=== PATIENT | female | born 1970 | race Caucasian/White ===

== ENCOUNTER 2022-09-09 18:19 | Emergency (ER) | payer OTHER ==
[~2022-09-09] VITALS: Ht 162.6 cm; Wt 68.0 kg
[2022-09-09 18:33] VITALS: BP 175/96
[2022-09-09] MEDS ORDERED: KETOROLAC 30 MG/ML VIAL IM ONE (19:15)
--- NOTE | 2022-09-09 19:21 | NUR ---
VELCRO SPLINT APPLIED TO R WRIST. + CMS
[2022-09-09] MEDS ORDERED: ACET-10509 PO (19:55)
[2022-09-09] MEDS ORDERED: TRAM-748 PO ×2 (19:55→19:57)
--- NOTE | 2022-09-09 20:12 | NUR ---
Patient discharged with v/s stable. Written and verbal after care instructions given and explained. Patient alert, oriented and verbalized understanding of instructions. Ambulatory with steady gait. All questions addressed prior to discharge. ID band removed. Patient advised to follow up with PMD. Rx of ULTRAM TYLENOL EXTRA STRENGTH given.
== END 2022-09-09 20:12 | disposition home or self-care (01) ==
LOC: MED 18:19
DX: M79.601 Pain in right arm (principal); Z86.73 Personal history of transient ischemic attack (TIA), and cerebral infarction without residual deficits; Z98.84 Bariatric surgery status
CPT/HCPCS: 29125; 96372; 99283; J1885

== ENCOUNTER → 2022-09-17 | Emergency (ER) | payer OTHER ==
[~2022-09-17] VITALS: Ht 157.5 cm; Wt 83.9 kg
[~2022-09-17] MED LIST: ACET-10509 PO; KETOROLAC 30 MG/ML VIAL IM ONE; TRAM-748 PO
[2022-09-17 18:57] VITALS: BP 171/82
--- NOTE | 2022-09-17 19:00 | NUR ---
PATIENT PRESENTS TO ED WITH REQUEST FOR PAIN MANAGEMENT FOR HER RIGHT SHOULDER. PATIENT STATED SHE USUALLY COMES HERE FOR HER PAIN CONTROL.
--- NOTE | 2022-09-17 19:36 | NUR ---
Patient discharged with v/s stable. Written and verbal after care instructions given and explained. Patient verbalized understanding. Ambulatory with steady gait. All questions addressed prior to discharge. Advised to follow up with PMD.
== END | disposition home or self-care (01) ==
LOC: MED 18:02
DX: G89.29 Other chronic pain (principal); M25.511 Pain in right shoulder; R03.0 Elevated blood-pressure reading, without diagnosis of hypertension; I25.2 Old myocardial infarction; Z86.73 Personal history of transient ischemic attack (TIA), and cerebral infarction without residual deficits; Z79.899 Other long term (current) drug therapy; Z98.84 Bariatric surgery status
CPT/HCPCS: 96372; 99283; J1885

== ENCOUNTER 2022-11-04 17:26 | Emergency (ER) | payer OTHER ==
[~2022-11-04] VITALS: Ht 162.6 cm; Wt 81.6 kg
[~2022-11-04 17:26] MED LIST changes: -KETOROLAC 30 MG/ML VIAL IM ONE
[2022-11-04 17:51] VITALS: BP 185/94
--- NOTE | 2022-11-04 17:55 | NUR ---
PT AMB TO BED 4.
--- NOTE | 2022-11-04 18:25 | NUR ---
SLING APPLIED TO L ARM. + CMS
--- NOTE | 2022-11-04 19:01 | NUR ---
Dr Gutiérrez made aware of pt B/P 184/90
[2022-11-04] MEDS ORDERED: TRAM50TA3 PO (19:03)
[2022-11-04] MEDS ORDERED: traMADol 50 MG TAB PO ONE (19:05)
--- NOTE | 2022-11-04 19:14 | NUR ---
Pt report given to GERBER Valderrama. Transfer of care at this time.
[2022-11-04 19:25] VITALS: BP 150/86
== END 2022-11-04 19:25 | disposition home or self-care (01) ==
LOC: MED 17:26
DX: M25.511 Pain in right shoulder (principal); I10 Essential (primary) hypertension; I25.10 Atherosclerotic heart disease of native coronary artery without angina pectoris; F17.210 Nicotine dependence, cigarettes, uncomplicated; Z86.73 Personal history of transient ischemic attack (TIA), and cerebral infarction without residual deficits; Z79.899 Other long term (current) drug therapy
CPT/HCPCS: 99283

== ENCOUNTER 2022-11-13 16:39 | Emergency (ER) | payer SELFPAY ==
[~2022-11-13] VITALS: Ht 162.6 cm; Wt 81.6 kg
[~2022-11-13 16:39] MED LIST changes: +TRAM50TA3 PO
[2022-11-13 17:10] VITALS: BP 180/89
--- NOTE | 2022-11-13 17:45 | NUR ---
BIB SELF C/O RIGHT SHOULDER PAIN. SEEN HERE 9 DAYS AGO SAME S/S. PMH: KS, STROKE, GASTRIC BY PASS
[2022-11-13] MEDS ORDERED: CAPS1ADH5 TP (18:58)
[2022-11-13] MEDS ORDERED: TRAM-748 PO (18:58)
[2022-11-13] MEDS ORDERED: DICL20GE TP (18:58)
[2022-11-13 19:04] VITALS: BP 143/76
--- NOTE | 2022-11-13 19:04 | NUR ---
Patient discharged with v/s stable. Written and verbal after care instructions given and explained. Patient alert, oriented and verbalized understanding of instructions. Ambulatory with steady gait. All questions addressed prior to discharge. ID band removed. Patient advised to follow up with PMD. Rx of SALONPAS GEL PATCH HOT, VOLTAREN ARTHRITIS PAIN, ULTRAM given. Patient educated on indication of medication including possible reaction and side effects. Opportunity to ask questions provided and answered.
== END 2022-11-13 19:04 | disposition home or self-care (01) ==
LOC: MED 16:39
DX: M19.011 Primary osteoarthritis, right shoulder (principal); M25.511 Pain in right shoulder
CPT/HCPCS: 73030; 99283; Q0092

== ENCOUNTER 2024-05-27 09:23 | Emergency (ER) | payer SELFPAY ==
[~2024-05-27] VITALS: Ht 162.6 cm; Wt 89.8 kg
[~2024-05-27 09:23] MED LIST changes: -ACET-10509 PO; +ACET500T99 PO; +CAPS1ADH5 TP; +DICL20GE TP
--- NOTE | 2024-05-27 09:30 | NUR ---
PATIENT PRESENTS TO ED WITH FACIAL PAIN. PT STATES THAT THEY HAVE BEEN DRINKING AND IN CHORNIC PAIN. DENIES N/V/D; SKIN IS PINK/WARM/DRY; AAOX4 WITH EVEN AND STEADY GAIT; LUNGS CLEAR BL; HR EVEN AND REGULAR; PT DENIES ANY FEVER, CP, SOB, OR COUGH AT THIS TIME; PATIENT STATES PAIN OF 10/10 AT THIS TIME; BLOOD PRESSURE 220/89; PATIENT POSITIONED FOR COMFORT; HOB ELEVATED; BEDRAILS UP X2; BED DOWN. ER MD MADE AWARE OF PT STATUS. CALL LIGHT WITHIN REACH NKA
[2024-05-27 09:31] VITALS: BP 220/101; PULSE 83; RESP 18; TEMP 98.6; O2SAT 98
--- NOTE | 2024-05-27 09:38 | NUR ---
Eric spaulding in [facility] - 05/27/24 at 1442 by [facility] TO ER BED 12
[2024-05-27] MEDS ORDERED: LORazepam 2 MG/ML VIAL IVP ONE (10:00)
--- NOTE | 2024-05-27 10:25 | NUR ---
REHABILITATION COORDINATOR MELLY AT BEDSIDE EKG.
[2024-05-27 10:40] LABS: BASOPHILS % (AUTO) 1.1 % (0.0-2.0); EOSINOPHILS # (AUTO) 0.2 K/uL (0-0.4); EOSINOPHILS % (AUTO) 5.9 % (0.0-4.0); HEMATOCRIT 42.2 % (36-48); HEMOGLOBIN 14.1 g/dL (12.0-16.0); LYMPHOCYTES # (AUTO) 0.9 K/uL (2.5-16.5); MEAN CORPUSCULAR HEMOGLOBIN 33 pg (27-31); MEAN CORPUSCULAR HGB CONC 33 g/dL (33-37); MEAN CORPUSCULAR VOLUME 99.6 fL (80-94); MONOCYTES # (AUTO) 0.6 K/uL (0.8-1.0); MONOCYTES % (AUTO) 14.5 % (1.7-9.3); NEUTROPHILS # (AUTO) 2.2 K/uL (1.8-7.7); NEUTROPHILS % (AUTO) 56.5 % (42.2-75.2); PLATELET COUNT (AUTO) 210 K/uL (140-450); RED BLOOD CELL COUNT(AUTO) 4.23 MIL/uL (4.20-5.40); RED CELL DISTRIBUTION WIDTH 14.5 % (11.6-13.7); WHITE BLOOD COUNT (AUTO) 3.9 K/uL (4.8-10.8)
[2024-05-27] MEDS: KETOROLAC 30 MG/ML VIAL IVP ONE (10:42)
[2024-05-27] MEDS: NACL 0.9% 1,000 ML IV ONE (10:43)
[2024-05-27 10:45] LABS: APPEARANCE,URINE CLEAR (CLEAR); BILIRUBIN,URINE NEGATIVE (NEGATIVE); BLOOD, URINE NEGATIVE (NEGATIVE); COLOR,URINE YELLOW (YELLOW); LEUKOCYTE ESTERASE ,URINE 1+ (NEGATIVE); NITRITE, URINE NEGATIVE (NEGATIVE); PROTEIN,URINE NEGATIVE (NEGATIVE); UGLUCOSE NEGATIVE (NEGATIVE); UROBILINOGEN,URINE 0.2 EU/dL (0.2 - 1)
[2024-05-27] MEDS: hydrALAZINE 20 MG/ML VIAL IVP ONE (10:49)
[2024-05-27 10:52] LABS: INR 1.04 (0.8-1.2); PROTHROMBIN TIME 10.9 secs (10.8-13.4)
[2024-05-27 10:56] LABS: CALCIUM 9.6 mg/dL (8.5-10.1); CARBON DIOXIDE 25.7 mmol/L (21-32); CREATININE 0.9 mg/dL (0.6-1.3); POTASSIUM 3.7 mmol/L (3.5-5.1)
[2024-05-27 10:58] LABS: ALANINE AMINOTRANSFERASE 273 U/L (12-78); ALBUMIN 3.6 g/dL (3.4-5.0); ALCOHOL, BLOOD < 3 mg/dL (<10); ALKALINE PHOSPHATASE 129 U/L (50-136); ASPARTATE AMINOTRANSFERASE 223 U/L (15-37); BACTERIA,URINE FEW /HPF (None Seen); BILIRUBIN,DIRECT 0.8 mg/dL (0.0-0.3); LIPASE 41 U/L (16-77); RBC,URINE 0-5 /HPF (0-5); SQUAMOUS EPITHELIAL CELL,UR 4-10 (MOD) /LPF (0-3 (FEW)); TOTAL BILIRUBIN 1.3 mg/dL (0.0-1.0); TOTAL PROTEIN, SERUM 7.1 g/dL (6.4-8.2)
[2024-05-27 10:59] LABS: AMPHETAMINE, URINE NEGATIVE ng/ml (NEG <=1000); BARBITURATE, URINE NEGATIVE ng/ml (NEG <=200); BENZODIAZEPINE, URINE NEGATIVE ng/mL (NEG <=200); CANNABINOID, URINE NEGATIVE ng/mL (NEG <=50); COCAINE, URINE NEGATIVE ng/mL (NEG <=300); OPIATE, URINE NEGATIVE ng/mL (NEG <=2000); PHENCYCLIDINE SCREEN,URINE NEGATIVE ng/mL (NEG <=25)
--- NOTE | 2024-05-27 11:17 | NUR ---
PT TO CT SCAN
[2024-05-27 13:49] VITALS: BP 167/83; PULSE 93; RESP 17; TEMP 98.6; O2SAT 96
== END 2024-05-27 13:50 | disposition home or self-care (01) ==
LOC: MED 09:23
DX: S22.42XA Multiple fractures of ribs, left side, initial encounter for closed fracture (principal); S09.90XA Unspecified injury of head, initial encounter; D72.819 Decreased white blood cell count, unspecified; E87.1 Hypo-osmolality and hyponatremia; R74.01 Elevation of levels of liver transaminase levels; I10 Essential (primary) hypertension; F10.20 Alcohol dependence, uncomplicated; Y90.0 Blood alcohol level of less than 20 mg/100 ml; I25.2 Old myocardial infarction; Z86.73 Personal history of transient ischemic attack (TIA), and cerebral infarction without residual deficits; Z79.899 Other long term (current) drug therapy; W19.XXXA Unspecified fall, initial encounter; Y93.89 Activity, other specified; Y92.89 Other specified places as the place of occurrence of the external cause; Y99.8 Other external cause status
CPT/HCPCS: 36415; 70450; 71275; 80048; 80076; 80305; 81001; 83690; 84484; 85025; 85610; 87086; 93005; 96361; 96374; 96375; 99285; G0482; J0360; J1885; J7030; Q9967